=== PATIENT | female | born 1975 | race Caucasian/White ===

== ENCOUNTER → 2019-02-13 | Outpatient (CLI) | payer BC, SELFPAY ==
[2019-02-17 13:01] LABS: HPV Reflexed? NOT INDICATED
== END | disposition home or self-care (01) ==
LOC: LABSPEC 14:04
PROVIDERS: Visit Provider Obstetrics & Gynecology
DX: Z12.4 Encounter for screening for malignant neoplasm of cervix (principal)
CPT/HCPCS: 88175; G0145

== ENCOUNTER → 2019-03-15 14:52 | Outpatient (CLI) | payer BC, SELFPAY ==
--- NOTE | 2019-03-15 14:58 | BI_ITS ---
MAMMOGRAPHY - BILATERAL SCREENING REASON FOR EXAM: Female, 44 years old. Routine annual screening examination. PERTINENT HISTORY: Non-contributory. TECHNIQUE: Digital bilateral breast hailey (3D mammographic acquisition) in the CC and MLO projections. 2-D mediolateral oblique (MLO) and craniocaudad (CC) views of both breasts were obtained. CAD: Full Field Digital Mammography with Computer Added Detection was performed. COMPARISON: None. Baseline examination. FINDINGS: Breast Composition: The breasts are heterogeneously dense, which may obscure small masses. There are no dominant masses or suspicious calcifications. No other significant abnormalities are identified. BI/SCREEN MAMM (CAD) W/HAILEY BILAT IMPRESSION: Negative screening mammogram. Yearly followup mammogram recommended. (A) ASSESSMENT CATEGORY: BIRADS Category 1: Negative. A letter regarding these results will be sent to the patient by the facility within 30 days. Approximately 10% of breast cancers are not detected by mammography. A normal mammogram should not delay biopsy of a clinically suspicious abnormality. [id number] Electronically Signed: Sebastian Dimas, at 8:45 EDT , Service support ,
== END ==
PROVIDERS: Referring Provider Obstetrics & Gynecology; Visit Provider Obstetrics & Gynecology
DX: Z12.31 Encounter for screening mammogram for malignant neoplasm of breast (principal)
CPT/HCPCS: 77063; 77067

== ENCOUNTER → 2020-08-22 10:37 | Outpatient (CLI) | payer BC, SELFPAY ==
--- NOTE | 2020-08-22 10:39 | BI_ITS ---
MAMMOGRAPHY - BILATERAL SCREENING REASON FOR EXAM: Female, 45 years old. Routine annual screening examination. PERTINENT HISTORY: Non-contributory. TECHNIQUE: Digital bilateral breast hailey (3D mammographic acquisition) in the CC and MLO projections. 2-D mediolateral oblique (MLO) and craniocaudad (CC) views of both breasts were obtained. CAD: Full Field Digital Mammography with Computer Added Detection was performed. COMPARISON: Comparison is made with prior study dated 03/15/2019. FINDINGS: Breast Composition: The breasts are heterogeneously dense, which may obscure small masses. There are no dominant masses or suspicious calcifications. No other significant abnormalities are identified. There has been no significant change since the prior study. BI/SCREEN MAMM (CAD) W/HAILEY BILAT IMPRESSION: Stable bilateral screening mammogram. Yearly follow-up mammogram recommended. (A) ASSESSMENT CATEGORY: BIRADS Category 1: Negative. A letter regarding these results will be sent to the patient by the facility within 30 days. Approximately 10% of breast cancers are not detected by mammography. A normal mammogram should not delay biopsy of a clinically suspicious abnormality. [id number] Electronically Signed: Sebastian Dimas, at 9:53 EST , Service support ,
== END ==
PROVIDERS: PCP Student in an Organized Health Care Education/Training Program; Referring Provider Student in an Organized Health Care Education/Training Program; Visit Provider Student in an Organized Health Care Education/Training Program
DX: Z12.31 Encounter for screening mammogram for malignant neoplasm of breast (principal)
CPT/HCPCS: 77063; 77067

== ENCOUNTER 2021-07-07 09:42 | Emergency (ER) | payer BC, SELFPAY ==
[2021-07-07 09:43] VITALS: BP 115/76; PULSE 72; RESP 16; TEMP 36.5; O2SAT 100; BMI 21.1
--- NOTE | 2021-07-07 10:03 | CT_ITS ---
STUDY: CT ABDOMEN AND PELVIS WITHOUT CONTRAST REASON FOR EXAM: Female, 46 years old. Right flank pain with nausea and vomiting. RADIATION DOSAGE (If Supplied By Facility): CTDIvol = ( 6.38 ) mGy, DLP = ( 280.46 ) mGycm TECHNIQUE: Transaxial images were obtained from the dome of the diaphragm to the symphysis pubis without oral contrast, and without intravenous contrast. Sagittal and coronal images were reconstructed. Individualized dose optimization techniques were used for this CT. COMPARISON: None. FINDINGS: The visualized lung bases are unremarkable. The visualized portions of the heart are within normal limits. Normal liver. Normal gallbladder and extrahepatic biliary system. Normal spleen. Normal pancreas. Normal bilateral adrenal glands. Mild degree of right hydronephrosis. Tiny nonobstructive right intrarenal calculi. Normal left kidney. Normal visualized stomach. Normal small intestine. Normal colon. The appendix is visualized and appears normal. Normal abdominal aorta. Normal inferior vena cava. Normal retroperitoneum. There is a 2 mm calculus at the base of the bladder on the right side. This most likely represents a recently passed ureteral calculus Normal abdominal wall. Normal osseous structures. CT/Abdomen/Pelvis without Cont IMPRESSION: Mild degree of right hydronephrosis. A 2 mm calculus is seen in the right side of the base of the bladder suggestive of a recently passed ureteral calculus. Electronically Signed: Sebastian Dimas MD at 10:50 EDT , Service support ,
--- NOTE | 2021-07-07 10:05 | EDS_ITS ---
HPI History of Present Illness Chief Complaint: Dizziness Informant: patient Onset/Context/Timing Onset: Yesterday Context: Gradual Onset Timing: Continuous Quality: Sharp Location: Right flank Worsened by: Nothing Relieved by: Nothing Narrative Narrative: Patient presents with right flank pain that began last night. Patient states she felt some mild pain last night. Patient states it became worse today. Patient describes the pain as sharp. Patient states nothing makes it better nothing makes it worse. Patient denies any fevers or chills. Patient admits to some nausea but denies any vomiting. Patient also admits to some lightheadedness. Patient states she felt like she might pass out. Patient denies any spinning sensation. Patient denies any dysuria or hematuria. PFSH PFSH Medical History no medical history no medical history Home Medications hydrocodone-acetaminophen 1 tab PO Q6H PRN PRN 3 Days #10 tablet 07/07/21 [Rx Last Taken Unknown] Allergy/AdvReac Type Severity Reaction Status Date / Time No Known Allergies Allergy Verified 07/07/21 09:45 Surgical History no surgical history no surgical history Social History Smoking Status: Never smoker ROS ROS ED Constitutional Constitutional ED: Denies chills or fever(s) Eyes Eyes: Denies blurry vision or change in vision ENT ENT ED: Denies rhinorrhea or sore throat Cardiovascular Cardiovascular: Denies chest pain or palpitations Respiratory/Chest Respiratory/Chest: Denies cough or dyspnea Gastrointestinal Gastrointestinal: Reports nausea; Denies vomiting Genitourinary Genitourinary ED: Denies dysuria or hematuria Musculoskeletal Musculoskeletal: Reports back pain; Denies neck pain Integumentary Denies abscess or rash Neurologic Neurologic: Reports weakness; Denies headache(s) Allergic/Immunologic Allergic/Immunologic ED: Denies mouth swelling or urticaria EXAM Physical Exam Const Vital Signs: 07/07/21 09:43 07/07/21 10:10 Temperature 97.7 F L Temperature Source Oral Pulse Rate 72 Respiratory Rate 16 Respiratory Effort Normal Non-Labored Respiratory Pattern Normal Blood Pressure 115/76 Blood Pressure Mean 89 Pulse Ox 100 Oxygen Delivery Method Room Air Positive well nourished and well developed General Appearance ED: well developed HEENT Reports moist mucous membranes Neck supple and no JVD Resp normal respiratory effort and clear to auscultation bilaterally Cardio regular rate, regular rhythm and no murmurs GI normal to inspection, nondistended, normoactive bowel sounds and non-tender Palpation: soft Back/Spine General Back: CVA tenderness right Extremity normal to inspection General Extremety ED: Negative for edema or tenderness General Extremity: Negative for edema Neuro oriented x3, CN's II-XII intact bilaterally and no sensory deficits noted Sensorium / Orientation: alert Motor Exam: strength 5/5 throughout Psych mental status grossly normal Skin no rashes or lesions noted MDM MDM MDM Narrative Medical decision making narrative: Patient was given IV fluids, Toradol, Zofran, and morphine. CBC was within normal limits. Comprehensive metabolic profile was normal. Urinalysis shows occult blood of 250 with 50-100 red blood cells. There were only 5-[address] scan of the abdomen and pelvis was obtained. There is a 2 mm calculus in the right side of the base of the bladder, suggestive of recently passed stone. This was interpreted by the radiologist and reviewed by myself. Patient was feeling better on reevaluation. Patient was advised of her findings. Patient was given a prescription for [place] to take as needed for pain. Patient was instructed to drink plenty of fluids. Patient was instructed to follow-up with her primary care physician in 5 to 7 days. Patient understood and was agreeable with the plan. All questions were answered. Lab Data Attestation: I reviewed the patient's lab results. Labs: Laboratory Results - last 24 hr 07/07/21 07/07/21 07/07/21 10:10 10:10 10:55 WBC 5.4 RBC 4.03 L Hgb 12.0 Hct 36.8 L MCV 91.3 MCH 29.8 MCHC 32.6 RDW Std Deviation 43.2 RDW Coeff of [place] 12.9 Plt Count 246 MPV 10.9 Immature Gran % (Auto) 0.400 Neut % (Auto) 71.1 H Lymph % (Auto) 21.5 [place] % (Auto) 5.0 Eos % (Auto) 1.1 Baso % (Auto) 0.9 Absolute Neuts (auto) 3.8 Absolute Lymphs (auto) 1.15 Nucleated RBC % 0 Sodium 142 Potassium 3.9 Chloride 108 H Carbon Dioxide 27.0 Anion Gap 7 BUN 20 H Creatinine 0.80 Estim Creat Clear Calc 83.14 Est GFR (MDRD) Af Amer 98 Est GFR (MDRD) Non-Af 81 BUN/Creatinine Ratio 24.9 H Glucose 132 H Calcium 9.1 Total Bilirubin 0.30 AST 16 ALT 25 Alkaline Phosphatase 62 Total Protein 7.1 Albumin 3.6 Globulin 3.5 Albumin/Globulin Ratio 1.0 Urine Color Yellow Urine Clarity Sl. Cloudy Urine pH 6.5 Ur Specific [place] 1.015 Urine Protein 30 H Urine Glucose (UA) Normal Urine Ketones 5 H Urine Occult Blood 250 H Urine Nitrite Negative Urine Bilirubin Negative Urine Urobilinogen Normal Ur Leukocyte Esterase 25 H Urine RBC 50-100 SEEN Urine WBC 5-10 SEEN Ur Squamous Epith Cells 0 SEEN Calcium Oxalate Crystal 1+ Urine Bacteria 1+ Urine Mucus 0 SEEN Radiography Diagnostic Testing: Clinical Impression(s) from Imaging Studies Abdomen/Pelvis CT 07/07/21 10:03 IMPRESSION: Mild degree of right hydronephrosis. A 2 mm calculus is seen in the right side of the base of the bladder suggestive of a recently passed ureteral calculus. Electronically Signed: Sebastian Dimas MD at 10:50 EDT , Service support , Discharge Plan Triage Chief Complaint: Dizziness ED Provider: John Arevalo Dx/Rx/DC Orders Clinical Impression: Calculus of right ureter Instructions: ED Kidney Stone, Passed Prescriptions: New hydrocodone-acetaminophen [hydrocodone-acetaminophen] 1 TABLET tablet 1 tab PO Q6H PRN PRN (Reason: Pain) 3 Days Qty: 10 RF: 0 Primary Care Provider: Az Clarke Referrals: Az Clarke DO [Primary Care Provider] - 3-5 Days Disposition Disposition: Home, Self Care
[2021-07-07 10:16] LABS: Absolute Lymphocyte Count 1.15 X10^3/uL (0.83-4.51); Absolute Neutrophil Count 3.8 X10^3/uL (2.0-7.7); Basophil# 0.05 X10^3/uL; Basophil% 0.9 % (0-1); Eosinophil# 0.06 X10^3/uL; Eosinophils% 1.1 % (0-5); Hematocrit 36.8 % (37-47); Lymphocyte # 1.15 X10^3/ul (0.83-4.51); Lymphocyte % 21.5 % (19-41); Mean Corp Hgb Conc 32.6 g/dL (32-36); Mean Corpuscular Hgb 29.8 pg (27.0-32.0); Mean Corpuscular Volume 91.3 fL (81-99); Mean Platelet Vol. 10.9 fl (6.2-12.0); Monocyte# 0.27 X10^3/uL; NRBC Flagged by Analyzer 0 % (0-5); Neutrophil % 71.1 % (47-70); Platelet Count 246 K/mm3 (150-450); RBC Distribution Width CV 12.9 % (11.6-14.6); RBC Distribution Width SD 43.2 fl (35.1-43.9); Red Blood Count 4.03 M/mm3 (4.2-5.4); White Blood Count 5.4 K/mm3 (4.4-11.0)
[2021-07-07] MEDS: 0.9% Normal Saline 1,000 ML 1000 ML IV (10:17)
[2021-07-07] MEDS: Ondansetron 4 MG/2 ML Vial IV (10:18)
[2021-07-07] MEDS: Morphine 4 MG/ML Syringe IV (10:18)
[2021-07-07] MEDS: Ketorolac 30 MG/ML Syringe IV (10:18)
[2021-07-07 10:53] LABS: AST(SGOT) 16 U/L (15-37); Alanine Aminotransfer ALT/SGPT 25 U/L (13-56); Albumin, Serum 3.6 g/dL (3.2-5.0); Alkaline Phosphatase 62 U/L (45-117); Anion Gap 7 (5-15); BUN 20 mg/dL (7-18); BUN/Creat Ratio 24.9 RATIO (10-20); Calcium,Total 9.1 mg/dL (8.5-10.1); Chloride 108 mmol/L (98-107); EST Glomerular Filtration Rate 81 mL/min (>60); Est Glom Filt Rate - Afr Amer 98 mL/min (>60); Estimated Creatinine Clearance 83.14 ml/min; Globulin 3.5 g/dL (2.2-4.2); Glucose 132 mg/dL (74-106); Potassium 3.9 mmol/L (3.5-5.1); Protein, Total 7.1 g/dL (6.4-8.2); Sodium Level 142 mmol/L (136-145)
[2021-07-07 11:06] LABS: Mucous, Urine 0 SEEN /hpf (<or=2+); Squamous Epithelial Cells - UA 0 SEEN /hpf (5-10)
[2021-07-07 11:07] LABS: Color, Urine Yellow (Yellow); Glucose, Dipstick Normal (Normal); Ketone-Dipstick 5 mg/dl (Negative); Leukocyte Esterase-Dipstick 25 /ul (Negative); Nitrite-Dipstick Negative (Negative); Occult Blood-Urine 250 /ul (Negative); Protein-Dipstick 30 mg/dl (Negative); Specific Gravity, Urine 1.015 (1.002-1.030); Urine Bilirubin Dipstick Negative (Negative); Urine Clarity Sl. Cloudy (Clear); Urine Urobilinogen Normal (Normal); Urine pH 6.5 (5.0 - 8.0)
[2021-07-07 11:15] LABS: Red Blood Cells-Urine 50-100 SEEN /hpf (0-5); White Blood Cells 5-10 SEEN /hpf (0-5)
[2021-07-07 11:16] LABS: Bacteria 1+ /hpf (None Seen); Calcium Oxalate Crystals Ur 1+ /hpf (<or=2+)
[2021-07-07 11:51] VITALS: BP 108/70; PULSE 68; RESP 14; O2SAT 100
== END 2021-07-07 11:52 | disposition home or self-care (01) ==
PROVIDERS: Emergency Provider Emergency Medicine; PCP Student in an Organized Health Care Education/Training Program
DX: N13.2 Hydronephrosis with renal and ureteral calculous obstruction (principal)
CPT/HCPCS: 74176; 80053; 81001; 85025; 96361; 96374; 96375; 99284; J7030; A4216; J2405

== ENCOUNTER → 2022-02-02 | Outpatient (CLI) | payer OTHER, SELFPAY ==
--- NOTE | 2022-02-02 07:16 | BI_ITS ---
MAMMOGRAPHY - BILATERAL SCREENING REASON FOR EXAM: Female, 46 years old. Routine annual screening examination. PERTINENT HISTORY: Non-contributory. TECHNIQUE: Digital bilateral breast hailey (3D mammographic acquisition) in the CC and MLO projections. 2-D mediolateral oblique (MLO) and craniocaudad (CC) views of both breasts were obtained. CAD: Full Field Digital Mammography with Computer Added Detection was performed. COMPARISON: Bilateral screening mammogram from 08/22/2020, 03/15/2019. FINDINGS: Breast Composition: The breasts are heterogeneously dense, which may obscure small masses. There are no dominant masses or suspicious calcifications. Scattered likely benign calcifications, stable since 2018. No other significant abnormalities are identified. There has been no significant change since the prior study. BI/SCRN MAMM (CAD)W/HAILEY BILAT IMPRESSION: Stable bilateral screening mammogram. Yearly follow-up mammogram recommended. (A) ASSESSMENT CATEGORY: BIRADS Category 2: Benign. A letter regarding these results will be sent to the patient by the facility within 30 days. Approximately 10% of breast cancers are not detected by mammography. A normal mammogram should not delay biopsy of a clinically suspicious abnormality. [id number] Electronically Signed: Braxton Lezama, at 17:32 EDT ,
== END | disposition home or self-care (01) ==
LOC: OPBI 07:14
PROVIDERS: PCP Student in an Organized Health Care Education/Training Program; Visit Provider Nurse Practitioner Family
DX: Z12.31 Encounter for screening mammogram for malignant neoplasm of breast (principal)
CPT/HCPCS: 77063; 77067

== ENCOUNTER → 2023-08-31 | Outpatient (CLI) | payer OTHER, SELFPAY ==
--- NOTE | 2023-08-31 08:58 | NEURO ---
NCS and/or EMG Patient Report Ordering Doctor: Az Clarke DATE OF SERVICE: 08/31/23 Clinical Summary: This is a 48 year old female presenting with complaints of right hand numbness. She also complains of left hand pain. This EMG/NCS was performed to evaluate for right/left carpal tunnel syndrome. Nerve Conduction Studies Summary: The right median-D2 SNAP was absent. The right median-APB CMAP distal latency was prolonged with reduced amplitude. Needle Examination Summary: Needle examination demonstrated increased insertional activity and spontaneous activity (positive sharp waves and fibrillation potentials) in the right abductor pollicis brevis muscle. There was a higher proportion of motor unit action potentials with reduced recruitment, decreased amplitude, decreased duration, and polyphasia in the right abductor pollicis brevis muscle. Impression: There is electrodiagnostic evidence of the following - 1) Severe, right median mononeuropathy at the wrist (carpal tunnel syndrome) with active denervation There is no electrodiagnostic evidence of left carpal tunnel syndrome. Multi Select Codes Neurology Neurology Interp Codes: 76085-77 Musc test done w/n test comp (interp) (2) and 24731-30 Nrv cndj test 9-10 studies (interp)
== END | disposition home or self-care (01) ==
LOC: PSN 07:08
PROVIDERS: PCP Student in an Organized Health Care Education/Training Program; Referring Provider Student in an Organized Health Care Education/Training Program; Visit Provider Student in an Organized Health Care Education/Training Program
DX: R20.2 Paresthesia of skin (principal); R53.1 Weakness; R20.0 Anesthesia of skin
CPT/HCPCS: 95886; 95911; 95912

== ENCOUNTER → 2023-09-05 | Outpatient (CLI) | payer OTHER, SELFPAY ==
--- NOTE | 2023-09-05 15:56 | BI_ITS ---
MAMMOGRAPHY - BILATERAL SCREENING 3-D TOMOSYNTHESIS REASON FOR EXAM: Female, 48 years old. Routine annual screening mammogram. PERTINENT HISTORY: No significant family history. TECHNIQUE: 2-D mammograms and 3-D Tomosynthesis of the breast (s) were performed. CAD was performed. COMPARISON: February 02, 2022, August 22, 2020 FINDINGS: Stable scattered fibroglandular densities. Scattered benign calcifications bilaterally unchanged. No dominant masses, suspicious microcalcifications, asymmetry, skin thickening or nipple retraction. BI/SCRN MAMM (CAD)W/HAILEY BILAT IMPRESSION: No mammographic signs of malignancy. Yearly follow-up bilateral screening mammogram recommended. ASSESSMENT CATEGORY: BIRADS Category 2: Benign. A letter regarding these results will be sent to the patient by the facility within 30 days. FOLLOW UP RECOMMENDATION: Yearly follow up mammogram recommended. (A) Approximately 10% of breast cancers are not detected by mammography. A normal mammogram should not delay biopsy of a clinically suspicious abnormality. Electronically Signed: Anupam Luo MD at 11:15 EST ,
--- NOTE | 2023-09-05 15:58 | BD_ITS ---
STUDY: DUAL ENERGY X-RAY ABSORPTIOMETRY / DXA REASON FOR EXAM: Female, 48 years old. 733.00OsteoporosisBONE DENSITY REASON FOR EXAM TECHNIQUE: Bone Mineral Density (BMD) measurements of lumbar spine and bilateral hips were obtained. COMPARISON: None. FINDINGS: Lumbar Spine (L1-L4): g/cm2 (0.667) / T-score (-3.6) / Z-score (-2.8) Findings are suggestive of osteoporosis with a high fracture risk. Left Femur Total: g/cm2 (0.657) / T-score (-2.3) / Z-score (-1.8) Left Femoral Neck: g/cm2 (0.545) / T-score (-2.7) / Z-score (-2.0) Right Femur Total: g/cm2 (0.655) / T-score (-2.4) / Z-score (-1.9) Right Femoral Neck: g/cm2 (0.566) / T-score (-2.6) / Z-score (-1.8) BD/Dexa Bone Density Study IMPRESSION: The patient is considered osteoporotic as outlined below according to World [employer] Organization (WHO) criteria with a high fracture risk. Reference Information: The T-score is the number of standard deviations above or below the standard which is normal for young adults at their peak bone mineral density. The World Health Organization (WHO) interprets the T-scores as follows: Above -1 Normal bone density Between -1 and -2.5 Osteopenia Equal to / or below -2.5 Osteoporosis As a practical clinical guideline, osteopenia may be graded as follows: Mild -1 through -1.5 Moderate -1.6 through -2.0 Severe -2.1 through -2.4 The Z-score is the number of standard deviations above or below age-matched controls. A Z-score of less than -1.5 would be considered abnormal. References: 1. NIH Osteoporosis and Related Bone Diseases www osteo.org 2. International Society for Clinical Densitometry www iscd.org 3. National Osteoporosis Foundation www nof.org Electronically Signed: Sebastian Dimas MD at 14:41 EST ,
== END | disposition home or self-care (01) ==
LOC: OPBD 15:55
PROVIDERS: PCP Student in an Organized Health Care Education/Training Program; Referring Provider Student in an Organized Health Care Education/Training Program; Visit Provider Student in an Organized Health Care Education/Training Program
DX: Z12.31 Encounter for screening mammogram for malignant neoplasm of breast (principal); Z13.820 Encounter for screening for osteoporosis
CPT/HCPCS: 77063; 77067; 77080